=== PATIENT | female | born 1950 | race Caucasian/White ===

== ENCOUNTER 2024-02-12 11:30 | Emergency (ER) | payer OTHER ==
[~2024-02-12] VITALS: Ht 157.5 cm; Wt 65.8 kg
[2024-02-12 11:34] VITALS: BP_SYST 143; PULSE 74; RESP 18; TEMP 98.3; O2SAT 98
[2024-02-12] MEDS ORDERED: PENI500T PO (12:51)
[2024-02-12] MEDS ORDERED: HYDR-3917 PO (12:51)
== END 2024-02-12 13:08 | disposition home or self-care (01) ==
LOC: SED 11:30
DX: K02.9 Dental caries, unspecified (principal); Z79.2 Long term (current) use of antibiotics; Z79.899 Other long term (current) drug therapy
CPT/HCPCS: 99283